=== PATIENT | female | born 1935 | race Asian ===

== ENCOUNTER 2016-11-08 06:09 | Day surgery (SDC) | payer MEDICARE, OTHER ==
[2016-11-08] MEDS ORDERED: PHENYLEPHRINE 2.5% OPHTH 2 ML DROPS ONE (06:29)
[2016-11-08] MEDS ORDERED: PROPARACAINE 0.5% OPHTH DROPS 15 ML OPTH ONE ×2 (06:40→07:47)
[2016-11-08] MEDS ORDERED: PHENYLEPHRINE 2.5% OPHTH 2 ML DROPS OPTH ONE (06:40)
[2016-11-08] MEDS ORDERED: CYCLOPENTOLATE 1% OPHTH DROPS 2 ML OPTH ONE (06:40)
[2016-11-08] MEDS ORDERED: KETOROLAC 0.45% OPHTH DROPS OPTH ONE (06:40)
[2016-11-08] MEDS ORDERED: LACTATED RINGERS 500 ML IV ONE ×2 (07:00→08:00)
[2016-11-08] MEDS ORDERED: LIDOCAINE-MPF 2% 5 ML VIAL IM ONE (07:40)
[2016-11-08] MEDS ORDERED: MIDAZOLAM 2 MG/2 ML VIAL IVP ONE (07:40)
[2016-11-08] MEDS ORDERED: PROPOFOL 200 MG/20 ML VIAL IVP ONE (07:40)
[2016-11-08] MEDS ORDERED: EPINEPHrine 1 MG/ML AMP IVP ONE (07:46)
[2016-11-08] MEDS ORDERED: BRIMONIDINE 0.2% OPHTH DROPS 5 ML OPTH ONE (07:46)
[2016-11-08] MEDS ORDERED: CHONDR SULF/HYALURONATE SYRINGE IO ONE (07:47)
[2016-11-08] MEDS ORDERED: BSS/LIDOCAINE/EPINEPHRINE 1 ML SYRINGE IO ONE ×2 (07:47)
[2016-11-08] MEDS ORDERED: TIMOLOL 0.5% OPHTH DROPS OPTH ONE (07:47)
[2016-11-08] MEDS ORDERED: TRIAMCIN/MOXIFLOX/VANCO 1 ML VIAL IO ONE (07:48)
== END 2016-11-08 06:10 | disposition home or self-care (01) ==
PROC: 08RK3JZ Replacement of Left Lens with Synthetic Substitute, Percutaneous Approach (ICD-10-PCS; principal; 2016-11-08 07:30)
DX: H25.812 Combined forms of age-related cataract, left eye (principal); I10 Essential (primary) hypertension; K21.9 Gastro-esophageal reflux disease without esophagitis; E78.5 Hyperlipidemia, unspecified; Z91.89 Other specified personal risk factors, not elsewhere classified
CPT/HCPCS: 66984; A9270; J7120; V2632

== ENCOUNTER 2017-01-09 07:39 | Outpatient (CLI) | payer MEDICARE, OTHER | END 2017-01-09 07:40 | disposition home or self-care (01) | DX: I10 Essential (primary) hypertension (principal); E78.5 Hyperlipidemia, unspecified ==

== ENCOUNTER 2017-01-31 08:54 | Day surgery (SDC) | payer MEDICARE, OTHER ==
[~2017-01-31 08:54] MED LIST: PHENYLEPHRINE 2.5% OPHTH 2 ML DROPS ONE
[2017-01-31] MEDS ORDERED: CYCLOPENTOLATE 1% OPHTH DROPS 2 ML OPTH ONE (09:26)
[2017-01-31] MEDS ORDERED: PROPARACAINE 0.5% OPHTH DROPS 15 ML OPTH ONE ×2 (09:26→10:04)
[2017-01-31] MEDS ORDERED: KETOROLAC 0.45% OPHTH DROPS OPTH ONE (09:26)
[2017-01-31] MEDS ORDERED: PHENYLEPHRINE 2.5% OPHTH 2 ML DROPS OPTH ONE (09:26)
[2017-01-31] MEDS ORDERED: LACTATED RINGERS 500 ML IV ONE (09:33)
[2017-01-31] MEDS ORDERED: PROPOFOL 200 MG/20 ML VIAL IVP ONE (10:00)
[2017-01-31] MEDS ORDERED: MIDAZOLAM 2 MG/2 ML VIAL IVP ONE (10:00)
[2017-01-31] MEDS ORDERED: LIDOCAINE-MPF 2% 5 ML VIAL IM ONE (10:00)
[2017-01-31] MEDS ORDERED: CHONDR SULF/HYALURONATE SYRINGE IO ONE (10:03)
[2017-01-31] MEDS ORDERED: BRIMONIDINE 0.2% OPHTH DROPS 5 ML OPTH ONE (10:03)
[2017-01-31] MEDS ORDERED: EPINEPHrine 1 MG/ML AMP IVP ONE (10:03)
[2017-01-31] MEDS ORDERED: TIMOLOL 0.5% OPHTH DROPS OPTH ONE (10:04)
[2017-01-31] MEDS ORDERED: TRIAMCIN/MOXIFLOX/VANCO 1 ML VIAL IO ONE ×2 (10:04)
[2017-01-31] MEDS ORDERED: BSS/LIDOCAINE/EPINEPHRINE 1 ML SYRINGE IO ONE ×2 (10:04)
== END 2017-01-31 08:55 | disposition home or self-care (01) ==
PROC: 08RJ3JZ Replacement of Right Lens with Synthetic Substitute, Percutaneous Approach (ICD-10-PCS; principal; 2017-01-31 10:00)
DX: H25.811 Combined forms of age-related cataract, right eye (principal); I10 Essential (primary) hypertension; E78.5 Hyperlipidemia, unspecified; Z79.82 Long term (current) use of aspirin; H40.9 Unspecified glaucoma
CPT/HCPCS: 66984; A9270; V2632

== ENCOUNTER 2017-09-09 08:00 | Outpatient (CLI) | payer MEDICARE, OTHER ==
[2017-09-09 12:35] LABS: CALCIUM 9.5 mg/dL (8.5-10.3); CREATININE 1.2 mg/dL (0.4-1.0); POTASSIUM 4.4 mmol/L (3.5-5.0)
== END 2017-09-09 08:01 | disposition home or self-care (01) ==
LOC: LAB.WCP 08:00
PROVIDERS: ATTEND Family Medicine
DX: I10 Essential (primary) hypertension (principal)
CPT/HCPCS: 36415; 80048

== ENCOUNTER 2017-10-30 08:00 | Outpatient (CLI) | payer MEDICARE, OTHER ==
[2017-10-30 13:31] LABS: CALCIUM 8.9 mg/dL (8.5-10.3)
== END 2017-10-30 08:01 | disposition home or self-care (01) ==
LOC: LAB.WCP 08:00
PROVIDERS: ATTEND Family Medicine
DX: R94.4 Abnormal results of kidney function studies (principal)
CPT/HCPCS: 36415; 80048

== ENCOUNTER 2018-06-17 08:00 | Outpatient (CLI) | payer MEDICARE, OTHER ==
[2018-06-17 13:42] LABS: ALBUMIN 3.9 g/dL (3.2-5.5); ALBUMIN/GLOBULIN RATIO 1.5 (1.0-2.2); ALKALINE PHOSPHATASE 37 IU/L (42-121); ALT ALANINE AMINOTRANSFERASE 14 IU/L (10-60); AST ASPARTATE AMINOTRANSFERASE 25 IU/L (10-42); BUN - BLOOD UREA NITROGEN 21 mg/dL (6-20); CALCIUM 9.5 mg/dL (8.5-10.3); CARBON DIOXIDE - CO2 29 mmol/L (21-32); CHLORIDE 105 mmol/L (101-111); CHOL/HDL RATIO 2.8 (<4.4); CHOLESTEROL 122 mg/dL; GFR - MDRD 53 (>89); GLUCOSE 91 mg/dL (70-100); HDL CHOLESTEROL 44 mg/dL; LDL CHOLESTEROL,CALCULATED 59 mg/dL; LDL/HDL RATIO 1.3 (<4.4); SODIUM 141 mmol/L (135-145); TOTAL PROTEIN 6.5 g/dL (6.7-8.2); VLDL CHOLESTEROL 19 mg/dL
[2018-06-17 13:46] LABS: THYROID STIMULATING HORMONE 1.31 uIU/mL (0.34-5.60)
[2018-06-17 13:55] LABS: BASOPHILS % (AUTO) 0.6 %; EOSINOPHILS # (AUTO) 0.1 10^3/uL (0.0-0.7); EOSINOPHILS % (AUTO) 1.3 %; LYMPHOCYTES % (AUTO) 28.3 %; MEAN CORPUSCULAR HEMOGLOBIN 32.6 pg (27.0-31.0); MEAN CORPUSCULAR HGB CONC 34.2 g/dL (32.0-36.0); MEAN CORPUSCULAR VOLUME 95.1 fL (81.0-99.0); MEAN PLATELET VOLUME 11.8 fL (7.9-10.8); MONOCYTES # (AUTO) 0.5 10^3/uL (0.0-1.0); MONOCYTES % (AUTO) 7.6 %; NEUTROPHILS # (AUTO) 4.5 10^3/uL (1.5-6.6); NEUTROPHILS % (AUTO) 62.2 %; PLT - PLATELET COUNT 193 10^3/uL (130-450); RED BLOOD COUNT 3.98 10^6/uL (4.20-5.40); RED CELL DISTRIBUTION WIDTH 13.8 % (12.0-15.0); WHITE BLOOD COUNT 7.2 x10^3/uL (4.8-10.8)
[2018-06-17 13:57] LABS: FOLATE 18.95 ng/mL (5.90 - >24.8)
[2018-06-17 14:31] LABS: RBC MORPHOLOGY (MULTIPLE) 1+ ANISOCYTOSIS (NORMAL)
== END 2018-06-17 08:01 | disposition home or self-care (01) ==
LOC: LAB.WCP 08:00
PROVIDERS: ATTEND Family Medicine
DX: I10 Essential (primary) hypertension (principal); R41.3 Other amnesia
CPT/HCPCS: 36415; 80053; 80061; 82607; 82746; 83721; 84443; 85025

== ENCOUNTER 2018-08-13 11:05 | Emergency (ER) | payer MEDICARE, OTHER ==
[2018-08-13 11:20] VITALS: BP 131/79
--- NOTE | 2018-08-13 12:38 | ED Physician Documentation ---
History of Present Illness - Stated complaint Stated Complaint: L SIDE PX - Chief complaint Chief Complaint: General - History obtained from History obtained from: Patient, Family (daughter) - History of Present Illness Timing: Other (About 3-4 days L rib pain without injury that is recollected. Aching in quality. She is demented, so hx from daughter.) Review of Systems Unable to obtain: Dementia PD PAST MEDICAL HISTORY - Past Medical History Cardiovascular: Hypertension, High cholesterol Respiratory: None Endocrine/Autoimmune: None GI: None : None HEENT: Glaucoma Musculoskeletal: Osteoarthritis Derm: None - Past Surgical History HEENT: Cataracts - Present Medications Home Medications: Ambulatory Orders Medication Instructions Recorded Confirmed Aspirin [Yelena Chewable Aspirin] 81 mg PO DAILY 11/08/16 01/31/17 RX: Fenofibrate 160 mg PO DAILY 11/08/16 01/31/17 RX: HYDROcod/ACETAM 5/325 [[place] 5 mg PO PRN PRN 11/08/16 01/31/17 5/325] RX: Latanoprost 1 drops EACHEYE DAILY 11/08/16 01/31/17 RX: Lisinopril 5 mg PO DAILY 11/08/16 01/31/17 RX: Simvastatin 20 mg PO DAILY 11/08/16 01/31/17 RX: Timolol [Betimol] 1 drops EACHEYE DAILY 11/08/16 01/31/17 Hydrocodone/Acetaminophen 1 - 2 each PO Q6H PRN #14 tablet 08/13/18 [Hydrocodon-Acetaminophen 5-325] RX: Amlodipine Besylate 10 mg 08/13/18 RX: Pantoprazole [Protonix] 40 mg 08/13/18 - Allergies Allergies/Adverse Reactions: Allergies Allergy/AdvReac Type Severity Reaction Status Date / Time No Known Drug Allergies Allergy Verified 08/13/18 11:20 PD ED PE NORMAL - Vitals Vital signs reviewed: Yes - General General: No acute distress, Well developed/nourished - Neck Neck: Supple, no meningeal sign, No bony TTP - Cardiac Cardiac: RRR, No murmur - Respiratory Respiratory: No respiratory distress, Clear bilaterally, Other (Tender focally over about rib 6 or so mid axillary line on the left. No overlying skin changes, ecchymosis, or shingles.) - Abdomen Abdomen: Soft, Non tender - Extremities Extremities: No calf tenderness / cord Results - Vitals Vitals: Vital Signs - 24 hr 08/13/18 11:16 Temperature 36.6 C Heart Rate 60 Respiratory 16 Rate Blood Pressure 131/79 H O2 Saturation 100 Oxygen O2 Source Room air - EKG (time done) 1254 Rate: Rate (enter#) Rhythm: NSR [place]: Normal Intervals: Normal AR QRS: Normal Ischemia: Normal ST segments Computer interpretation: Agree with computer - Rads (name of study) L ribs and chest Radiology: EMP read contemporaneously (suspect acute/subacute L rib frx) Departure - Departure Disposition: Home, Self Care Clinical Impression: Rib fracture Condition: Good Record reviewed to determine appropriate education?: Yes Instructions: ED Fx Rib Prescriptions: Hydrocodone/Acetaminophen [Hydrocodon-Acetaminophen 5-325] 1 - 2 each PO Q6H PRN #14 tablet PRN Reason: pain Comments: Follow-up with your doctor in a week. Do not drink or drive while taking narcotic pain medication. Note that many narcotic pain relievers also contain Tylenol/acetaminophen. Please ensure that your total dose of acetaminophen from all sources does not exceed 3 g (3000 mg) per day. You may get constipated while on this medication. Take a stool softener such as Colace twice a day while you are on it. Also add an zgso-moy-vspndzi laxative such as senna or MiraLAX on any day that you do not have a bowel movement. If you received a narcotic pain medication or sedative while in the emergency department, do not drive for the next 24 hours. Discharge Date/Time: 08/13/18 14:23
[2018-08-13] MEDS ORDERED: HYDROcod/ACETAM 5/325 MG TABLET PO STA (12:44)
--- NOTE | 2018-08-13 14:08 | XRAY Report ---
Reason: rib pain L side Procedure Date: 08/13/2018 Accession Number: [id number] / [id number] Procedure: XR - Ribs w/PA Chest LT CPT Code: FULL RESULT: EXAM: LEFT RIB RADIOGRAPHY EXAM DATE: 08/13/2018 01:39 PM. CLINICAL HISTORY: Rib pain left side. COMPARISON: XR CHEST PA AND LAT 05/14/2007 5:56 AM. TECHNIQUE: 1 view of the chest and 2 views of the ribs. FINDINGS: Bones: In the region identified by a marker is cortical irregularity and thickening which most likely represents a healing subacute fracture. No acute fracture or bone lesion. Lungs: No focal opacities. No pneumothorax. No pleural effusions. Mediastinum: The heart is normal for size. The aortic arch is again calcified. The cardiomediastinal silhouette is overall stable. Other: None. IMPRESSION: Suspect subacute/healing left rib fracture at the site marked as tender. RADIA
== END 2018-08-13 14:23 | disposition home or self-care (01) ==
LOC: ED 11:05
DX: S22.32XA Fracture of one rib, left side, initial encounter for closed fracture (principal); X58.XXXA Exposure to other specified factors, initial encounter; F03.90 Unspecified dementia, unspecified severity, without behavioral disturbance, psychotic disturbance, mood disturbance, and anxiety; I10 Essential (primary) hypertension; E78.00 Pure hypercholesterolemia, unspecified
CPT/HCPCS: 71101; 93005; 99283; A9270

== ENCOUNTER 2018-09-19 08:24 | Outpatient (CLI) | payer MEDICARE, OTHER ==
--- NOTE | 2018-09-22 18:58 | DEXA Report ---
Reason: OSTEOPOROSIS NOS Procedure Date: 09/19/2018 Accession Number: [id number] / [id number] Procedure: DEX - Dexa Spine and/or Hip CPT Code: FULL RESULT: EXAM: Dexa Spine and/or Hip DATE: 09/19/2018 9:45 AM CLINICAL HISTORY: OSTEOPOROSIS NOS TECHNIQUE: Dual energy x-ray absorptiometry (DXA) was performed on a [employer] System. Regions measured are the AP Spine, femoral neck, and if needed forearm. COMPARISON: None. In accordance with the International Society for Clinical Densitometry (ISCD) guidelines, data from previous exams may be reanalyzed using current recommendations and techniques. This is done to allow a more accurate basis for comparison with the current study. FINDINGS: The data for the lumbar spine is as follows: BMD (g/cm/cm) T-SCORE Z-SCORE REGION L1 0.728 -3.4 -0.5 L2 0.851 -2.9 -0.1 L3 0.989 -1.8 1.1 L4 1.214 0.1 2.9 TOTAL 0.962 -1.8 1.0 NOTE: All evaluable vertebrae are used for classification The data for the hip is as follows: BMD (g/cm/cm) T-SCORE Z-SCORE REGION Neck 0.725 -2.3 0.7 TOTAL 0.693 -2.5 0.4 NOTE: The femoral neck or total proximal femur, whichever is lowest, is used for classification. IMPRESSION: THE WHO CLASSIFICATION BASED ON THE INTERNATIONAL REFERENCE STANDARD IS OSTEOPOROSIS. THE FRACTURE RISK IS HIGH. RECOMMENDATION: Patients with diagnosis of osteoporosis or osteopenia should have regular bone mineral density assessment. For those eligible for Medicare, routine testing is allowed once every 2 years. Testing frequency can be increased for patients who have rapidly progressing disease or for those who are receiving medical therapy to restore bone mass. COMMENT: World Health Organization (WHO) definitions for osteoporosis and osteopenia: NORMAL BMD: T-score at -1.0 or higher, fracture risk is low OSTEOPENIA BMD: T-score between -1.0 and -2.5, fracture risk is increased. OSTEOPOROSIS BMD: T-score at -2.5 or lower, fracture risk is high. National Osteoporosis Foundation recommends: 1. Obtain adequate dietary calcium (at least 1200 mg per day) and vitamin D (400-800 international units per day). 2. Participate, as appropriate, in regular weightbearing and muscle-strengthening exercise. 3. Avoid tobacco use and reduce alcohol and caffeine intake. 4. For more detailed information see the website at www.NOF.org.
== END 2018-09-19 08:25 | disposition home or self-care (01) ==
LOC: DI 08:24
PROVIDERS: ATTEND Family Medicine
DX: M81.0 Age-related osteoporosis without current pathological fracture (principal)
CPT/HCPCS: 77080

== ENCOUNTER 2018-12-03 14:30 | Outpatient (CLI) | payer MEDICARE, OTHER ==
[2018-12-03 19:08] LABS: BASOPHILS % (AUTO) 0.5 %; EOSINOPHILS # (AUTO) 0.1 10^3/uL (0.0-0.7); HGB - HEMOGLOBIN 12.7 g/dL (12.0-16.0); LYMPHOCYTES % (AUTO) 31.5 %; MEAN CORPUSCULAR HEMOGLOBIN 32.1 pg (27.0-31.0); MEAN CORPUSCULAR HGB CONC 32.9 g/dL (32.0-36.0); MEAN CORPUSCULAR VOLUME 97.6 fL (81.0-99.0); MONOCYTES # (AUTO) 0.5 10^3/uL (0.0-1.0); MONOCYTES % (AUTO) 8.1 %; NEUTROPHILS # (AUTO) 3.8 10^3/uL (1.5-6.6); NEUTROPHILS % (AUTO) 58.9 %; PLT - PLATELET COUNT 205 10^3/uL (130-450); RED BLOOD COUNT 3.97 10^6/uL (4.20-5.40); RED CELL DISTRIBUTION WIDTH 14.1 % (12.0-15.0); WHITE BLOOD COUNT 6.5 x10^3/uL (4.8-10.8)
[2018-12-03 19:26] LABS: PLATELET ESTIMATE, MANUAL NORMAL (130-450,000) (NORMAL); PLATELET MORPHOLOGY RARE GIANT PLATELETS (NORMAL); RBC MORPHOLOGY (MULTIPLE) NORMAL APPEARANCE (NORMAL)
[2018-12-03 19:34] LABS: ALBUMIN 3.7 g/dL (3.2-5.5); ALBUMIN/GLOBULIN RATIO 1.3 (1.0-2.2); CALCIUM 9.7 mg/dL (8.5-10.3); TOTAL PROTEIN 6.5 g/dL (6.7-8.2)
== END 2018-12-03 14:31 | disposition home or self-care (01) ==
LOC: LAB.WCP 14:30
PROVIDERS: ATTEND Physician Assistant
DX: R53.83 Other fatigue (principal)
CPT/HCPCS: 36415; 80053; 85025

== ENCOUNTER 2018-12-04 08:00 | Outpatient (CLI) | payer MEDICARE, OTHER | END 2018-12-04 23:59 | disposition home or self-care (01) | LOC: LAB.WCP 08:00 | PROVIDERS: ATTEND Physician Assistant | DX: R19.7 Diarrhea, unspecified (principal) | CPT/HCPCS: 81599; 83630; 87045; 87046; 87077; 87329; 87493 ==

== ENCOUNTER 2018-12-25 08:00 | Outpatient (CLI) | payer MEDICARE, OTHER ==
[2018-12-25 14:24] LABS: CHOL/HDL RATIO 2.9 (<4.4); CHOLESTEROL 120 mg/dL; HDL CHOLESTEROL 42 mg/dL; LDL CHOLESTEROL,CALCULATED 59 mg/dL; LDL/HDL RATIO 1.4 (<4.4); VLDL CHOLESTEROL 19 mg/dL
== END 2018-12-25 23:59 | disposition home or self-care (01) ==
LOC: LAB.WCP 08:00
PROVIDERS: ATTEND Family Medicine
DX: E78.5 Hyperlipidemia, unspecified (principal); F32.9 Major depressive disorder, single episode, unspecified
CPT/HCPCS: 36415; 80061; 83721; 84443

== ENCOUNTER 2018-12-30 09:57 | Outpatient (CLI) | payer MEDICARE, OTHER | END 2018-12-30 09:58 | disposition home or self-care (01) | LOC: RT 09:57 | PROVIDERS: ATTEND Internal Medicine Gastroenterology | DX: I10 Essential (primary) hypertension (principal) | CPT/HCPCS: 93005 ==

== ENCOUNTER 2019-01-01 11:39 | Day surgery (SDC) | payer MEDICARE, OTHER ==
[2019-01-01] MEDS ORDERED: LACTATED RINGERS 1,000 ML IV ONE (12:08)
[2019-01-01] MEDS ORDERED: fentaNYL 100 MCG/2 ML VIAL IVP ONE (12:35)
[2019-01-01] MEDS ORDERED: MIDAZOLAM 2 MG/2 ML VIAL IVP ONE (12:35)
[2019-01-01 13:43] VITALS: BP 127/72
== END 2019-01-01 11:40 | disposition home or self-care (01) ==
LOC: SDS 11:39
PROVIDERS: ATTEND Internal Medicine Gastroenterology
PROC: 0DBK8ZZ Excision of Ascending Colon, Via Natural or Artificial Opening Endoscopic (ICD-10-PCS; 2019-01-01)
PROC: 0DBK8ZZ Excision of Ascending Colon, Via Natural or Artificial Opening Endoscopic (ICD-10-PCS; principal; 2019-01-01 12:45)
DX: K62.5 Hemorrhage of anus and rectum (principal); D12.2 Benign neoplasm of ascending colon; K57.30 Diverticulosis of large intestine without perforation or abscess without bleeding; K21.9 Gastro-esophageal reflux disease without esophagitis; Z87.891 Personal history of nicotine dependence; Z79.891 Long term (current) use of opiate analgesic; E78.5 Hyperlipidemia, unspecified; I12.9 Hypertensive chronic kidney disease with stage 1 through stage 4 chronic kidney disease, or unspecified chronic kidney disease; N18.3 Chronic kidney disease, stage 3 (moderate); M16.0 Bilateral primary osteoarthritis of hip
CPT/HCPCS: 45380; 45385; J7120

== ENCOUNTER 2019-06-17 08:00 | Outpatient (CLI) | payer MEDICARE, OTHER ==
[2019-06-17 12:25] LABS: BASOPHILS # (AUTO) 0.1 10^3/uL (0.0-0.1); EOSINOPHILS # (AUTO) 0.1 10^3/uL (0.0-0.7); EOSINOPHILS % (AUTO) 1.2 %; HGB - HEMOGLOBIN 13.2 g/dL (12.0-16.0); LYMPHOCYTES # (AUTO) 1.7 10^3/uL (1.5-3.5); LYMPHOCYTES % (AUTO) 30.1 %; MEAN CORPUSCULAR HEMOGLOBIN 33.4 pg (27.0-31.0); MEAN CORPUSCULAR HGB CONC 34.6 g/dL (32.0-36.0); MEAN CORPUSCULAR VOLUME 96.7 fL (81.0-99.0); MONOCYTES # (AUTO) 0.6 10^3/uL (0.0-1.0); MONOCYTES % (AUTO) 9.9 %; NEUTROPHILS # (AUTO) 3.3 10^3/uL (1.5-6.6); NEUTROPHILS % (AUTO) 57.5 %; PLT - PLATELET COUNT 270 10^3/uL (130-450); RED BLOOD COUNT 3.95 10^6/uL (4.20-5.40); RED CELL DISTRIBUTION WIDTH 14.2 % (12.0-15.0); WHITE BLOOD COUNT 5.8 x10^3/uL (4.8-10.8)
[2019-06-17 12:41] LABS: ALBUMIN 3.7 g/dL (3.2-5.5); ALBUMIN/GLOBULIN RATIO 1.3 (1.0-2.2); ALKALINE PHOSPHATASE 34 IU/L (42-121); ALT ALANINE AMINOTRANSFERASE 12 IU/L (10-60); AST ASPARTATE AMINOTRANSFERASE 23 IU/L (10-42); BILIRUBIN,TOTAL 0.9 mg/dL (0.2-1.0); BUN - BLOOD UREA NITROGEN 22 mg/dL (6-20); CALCIUM 9.7 mg/dL (8.5-10.3); CARBON DIOXIDE - CO2 30 mmol/L (21-32); CHLORIDE 105 mmol/L (101-111); CHOL/HDL RATIO 3.1 (<4.4); CHOLESTEROL 118 mg/dL; GFR - MDRD 53 (>89); GLUCOSE 90 mg/dL (70-100); HDL CHOLESTEROL 38 mg/dL; LDL CHOLESTEROL,CALCULATED 59 mg/dL; LDL/HDL RATIO 1.6 (<4.4); SODIUM 142 mmol/L (135-145); TOTAL PROTEIN 6.5 g/dL (6.7-8.2); VLDL CHOLESTEROL 21 mg/dL
== END 2019-06-17 23:59 | disposition home or self-care (01) ==
LOC: LAB.WCP 08:00
PROVIDERS: ATTEND Physician Assistant
DX: E78.5 Hyperlipidemia, unspecified (principal); N18.3 Chronic kidney disease, stage 3 (moderate); M48.061 Spinal stenosis, lumbar region without neurogenic claudication; M81.0 Age-related osteoporosis without current pathological fracture; E55.9 Vitamin D deficiency, unspecified; M16.0 Bilateral primary osteoarthritis of hip; K21.9 Gastro-esophageal reflux disease without esophagitis; I12.9 Hypertensive chronic kidney disease with stage 1 through stage 4 chronic kidney disease, or unspecified chronic kidney disease
CPT/HCPCS: 36415; 80053; 80061; 83721; 84443; 85025

== ENCOUNTER 2019-07-29 12:11 | Emergency (ER) | payer MEDICARE, OTHER ==
[2019-07-29 12:48] VITALS: BP 150/60
--- NOTE | 2019-07-29 13:02 | ED Physician Documentation ---
PD HPI FOCAL NEURO - Stated complaint Stated Complaint: HEAD PX - Chief complaint Chief Complaint: Neuro - History obtained from History obtained from: Patient, Family - History of Present Illness Timing - onset: Other (For the last 2 to 3 days she has had several hours of of right parietal and occipital headaches in the morning. She is not a headachy person. She has no headache now. She does not notice any weakness, numbness, tingling. No fevers. No visual deficit.) Review of Systems Constitutional: denies: Fever, Chills Eyes: denies: Loss of vision, Decreased vision, Photophobia Nose: denies: Rhinorrhea / runny nose Throat: denies: Sore throat GI: denies: Nausea, Vomiting, Diarrhea PD PAST MEDICAL HISTORY - Past Medical History Cardiovascular: Hypertension, High cholesterol Respiratory: None Endocrine/Autoimmune: None GI: None : None HEENT: Glaucoma Musculoskeletal: Osteoarthritis Derm: None - Past Surgical History HEENT: Cataracts - Present Medications Home Medications: Ambulatory Orders Medication Instructions Recorded Confirmed Aspirin [Yelena Chewable Aspirin] 81 mg PO DAILY 11/08/16 01/01/19 Fenofibrate 160 mg PO DAILY 11/08/16 01/01/19 HYDROcod/ACETAM 5/325 [[place] 5/325] 5 mg PO PRN PRN 11/08/16 01/01/19 Latanoprost 1 drops EACHEYE DAILY 11/08/16 01/01/19 Lisinopril 10 mg PO DAILY 11/08/16 01/01/19 Simvastatin 20 mg PO DAILY 11/08/16 01/01/19 Timolol [Betimol] 1 drops EACHEYE DAILY 11/08/16 01/01/19 Amlodipine Besylate 10 mg PO DAILY 08/13/18 01/01/19 Pantoprazole [Protonix] 40 mg PO DAILY 08/13/18 01/01/19 - Allergies Allergies/Adverse Reactions: Allergies Allergy/AdvReac Type Severity Reaction Status Date / Time No Known Drug Allergies Allergy Verified 07/29/19 12:27 PD ED PE NORMAL - Vitals Vital signs reviewed: Yes - General General: Alert and oriented X 3, No acute distress - HEENT HEENT: PERRL, EOMI - Neck Neck: Supple, no meningeal sign, No bony TTP - Cardiac Cardiac: RRR, No murmur - Respiratory Respiratory: No respiratory distress, Clear bilaterally - Abdomen Abdomen: Non tender - Neuro Neuro: Alert and oriented X 3, resident care assistant 2-12 intact, No motor deficit, No sensory def icit, Normal speech Eye Opening: Spontaneous Motor: Obeys Commands Verbal: Oriented GCS Score: 15 Results - Vitals Vitals: Vital Signs - 24 hr 07/29/19 07/29/19 12:24 12:27 Temperature 37.1 C Heart Rate 62 60 Respiratory 16 14 Rate Blood Pressure 122/46 L 150/60 H O2 Saturation 98 99 Oxygen O2 Source Room air - Labs Labs: Laboratory Tests 07/29/19 07/29/19 07/29/19 13:07 13:07 13:07 WBC 6.3 RBC 3.79 L Hgb 12.0 Hct 36.8 L MCV 97.1 MCH 31.7 H MCHC 32.6 RDW 14.3 Plt Count 225 MPV 12.1 H Neut # (Auto) 3.7 Lymph # (Auto) 1.8 [place] # (Auto) 0.6 Eos # (Auto) 0.1 Baso # (Auto) 0.1 Absolute Nucleated RBC 0.00 Nucleated RBC % 0.0 ESR 2 Sodium 138 Potassium 4.1 Chloride 104 Carbon Dioxide 28 Anion Gap 6.0 BUN 29 H Creatinine 1.1 H Estimated GFR (MDRD) 47 L Glucose 120 H Calcium 9.3 Total Bilirubin 0.5 AST 21 ALT 12 Alkaline Phosphatase 28 L C-Reactive Protein < 1.0 Total Protein 6.2 L Albumin 3.6 Globulin 2.6 Albumin/Globulin Ratio 1.4 Lipase 33 - Rads (name of study) CT Head Radiology: EMP read contemporaneously (atrophy, NAD) PD MEDICAL DECISION MAKING - ED course ED course: 83-year-old woman with new morning headaches. Her examination is normal. CT imaging and inflammatory markers were done given advanced age and is negative. Departure - Departure Disposition: 01 Home, Self Care Clinical Impression: Headache Qualifiers: Headache type: unspecified Headache chronicity pattern: acute headache Intractability: not intractable Qualified Code(s): R51 - Headache Condition: Good Record reviewed to determine appropriate education?: Yes Instructions: ED Cephalgia Unspecified Comments: Tylenol as needed for pain. Return if worse. Followup with your physician. Labs and CT are normal Discharge Date/Time: 07/29/19 14:17
[2019-07-29 13:18] LABS: BASOPHILS # (AUTO) 0.1 10^3/uL (0.0-0.1); BASOPHILS % (AUTO) 0.8 %; EOSINOPHILS # (AUTO) 0.1 10^3/uL (0.0-0.7); EOSINOPHILS % (AUTO) 0.8 %; LYMPHOCYTES # (AUTO) 1.8 10^3/uL (1.5-3.5); LYMPHOCYTES % (AUTO) 27.9 %; MEAN CORPUSCULAR HEMOGLOBIN 31.7 pg (27.0-31.0); MEAN CORPUSCULAR HGB CONC 32.6 g/dL (32.0-36.0); MEAN CORPUSCULAR VOLUME 97.1 fL (81.0-99.0); MEAN PLATELET VOLUME 12.1 fL (7.9-10.8); MONOCYTES # (AUTO) 0.6 10^3/uL (0.0-1.0); MONOCYTES % (AUTO) 10.2 %; NEUTROPHILS # (AUTO) 3.7 10^3/uL (1.5-6.6); NEUTROPHILS % (AUTO) 59.7 %; PLT - PLATELET COUNT 225 10^3/uL (130-450); RED BLOOD COUNT 3.79 10^6/uL (4.20-5.40); RED CELL DISTRIBUTION WIDTH 14.3 % (12.0-15.0); WHITE BLOOD COUNT 6.3 x10^3/uL (4.8-10.8)
[2019-07-29 13:32] LABS: ALBUMIN 3.6 g/dL (3.2-5.5); ALBUMIN/GLOBULIN RATIO 1.4 (1.0-2.2); ALKALINE PHOSPHATASE 28 IU/L (42-121); ALT ALANINE AMINOTRANSFERASE 12 IU/L (10-60); AST ASPARTATE AMINOTRANSFERASE 21 IU/L (10-42); BILIRUBIN,TOTAL 0.5 mg/dL (0.2-1.0); BUN - BLOOD UREA NITROGEN 29 mg/dL (6-20); CALCIUM 9.3 mg/dL (8.5-10.3); CARBON DIOXIDE - CO2 28 mmol/L (21-32); CHLORIDE 104 mmol/L (101-111); CREATININE 1.1 mg/dL (0.4-1.0); GFR - MDRD 47 (>89); GLUCOSE 120 mg/dL (70-100); LIPASE 33 U/L (22-51); SODIUM 138 mmol/L (135-145); TOTAL PROTEIN 6.2 g/dL (6.7-8.2)
[2019-07-29 13:35] LABS: CRP - C-REACTIVE PROTEIN < 1.0 mg/dL (0-1.0)
--- NOTE | 2019-07-29 13:51 | CT Report ---
Reason: new headache Procedure Date: 07/29/2019 Accession Number: [id number] / [id number] Procedure: CT - HEAD WO CPT Code: FULL RESULT: EXAM: CT HEAD EXAM DATE: 07/29/2019 01:16 PM. CLINICAL HISTORY: New headache. COMPARISON: None. TECHNIQUE: Multiaxial CT images were obtained from the foramen magnum to the vertex. Reformats: Sagittal and coronal. IV contrast: None. In accordance with CT protocol optimization, one or more of the following dose reduction techniques were utilized for this exam: automated exposure control, adjustment of mA and/or KV based on patient size, or use of iterative reconstructive technique. FINDINGS: Parenchyma: There is bilateral frontal lobe parenchymal volume loss. Negative for acute hemorrhage. There is no midline shift or mass-effect. Extraaxial Spaces: No subdural or epidural hematoma. There is prominent CSF space in the anterior cranial fossa. Ventricles: Normal in size and position. Sinuses and Orbits: Imaged paranasal sinuses, orbits, and mastoids show no significant abnormality. Bones: No evidence of fracture or calvarial defect. Other: None. IMPRESSION: 1. Negative for an acute or focal intracranial abnormality. 2. Generalized cerebral volume loss. RADIA
== END 2019-07-29 14:17 | disposition home or self-care (01) ==
LOC: ED 12:11
DX: R51 Headache (principal); I10 Essential (primary) hypertension; Z79.82 Long term (current) use of aspirin
CPT/HCPCS: 36415; 70450; 80053; 83690; 85025; 85651; 86140; 99284

== ENCOUNTER 2020-07-26 08:18 | Outpatient (CLI) | payer MEDICARE, OTHER ==
[2020-07-26 12:34] LABS: BASOPHILS % (AUTO) 0.8 %; EOSINOPHILS # (AUTO) 0.1 10^3/uL (0.0-0.7); EOSINOPHILS % (AUTO) 1.8 %; HGB - HEMOGLOBIN 11.9 g/dL (12.0-16.0); LYMPHOCYTES # (AUTO) 1.1 10^3/uL (1.5-3.5); LYMPHOCYTES % (AUTO) 21.8 %; MEAN CORPUSCULAR HEMOGLOBIN 32.4 pg (27.0-31.0); MEAN CORPUSCULAR HGB CONC 33.2 g/dL (32.0-36.0); MEAN CORPUSCULAR VOLUME 97.5 fL (81.0-99.0); MEAN PLATELET VOLUME 13.3 fL (7.9-10.8); MONOCYTES # (AUTO) 0.6 10^3/uL (0.0-1.0); MONOCYTES % (AUTO) 12.1 %; NEUTROPHILS # (AUTO) 3.3 10^3/uL (1.5-6.6); NEUTROPHILS % (AUTO) 63.3 %; PLT - PLATELET COUNT 206 10^3/uL (130-450); RED BLOOD COUNT 3.67 10^6/uL (4.20-5.40); RED CELL DISTRIBUTION WIDTH 14.4 % (12.0-15.0); WHITE BLOOD COUNT 5.1 x10^3/uL (4.8-10.8)
[2020-07-26 12:44] LABS: ALBUMIN 3.6 g/dL (3.2-5.5); ALBUMIN/GLOBULIN RATIO 1.4 (1.0-2.2); ALKALINE PHOSPHATASE 48 IU/L (42-121); ALT ALANINE AMINOTRANSFERASE 12 IU/L (10-60); AST ASPARTATE AMINOTRANSFERASE 22 IU/L (10-42); BILIRUBIN,TOTAL 1.1 mg/dL (0.2-1.0); BUN - BLOOD UREA NITROGEN 33 mg/dL (6-20); CALCIUM 9.4 mg/dL (8.5-10.3); CARBON DIOXIDE - CO2 28 mmol/L (21-32); CHLORIDE 106 mmol/L (101-111); CHOL/HDL RATIO 2.9 (<4.4); CHOLESTEROL 109 mg/dL; CREATININE 1.5 mg/dL (0.4-1.0); GLUCOSE 99 mg/dL (70-100); HDL CHOLESTEROL 37 mg/dL; LDL CHOLESTEROL,CALCULATED 54 mg/dL; LDL/HDL RATIO 1.5 (<4.4); SODIUM 141 mmol/L (135-145); TOTAL PROTEIN 6.1 g/dL (6.7-8.2); VLDL CHOLESTEROL 18 mg/dL
== END 2020-07-26 23:59 ==
LOC: LAB.WCP 08:18
PROVIDERS: ATTEND Physician Assistant
DX: I10 Essential (primary) hypertension (principal); E78.5 Hyperlipidemia, unspecified
CPT/HCPCS: 36415; 80053; 80061; 83721; 85025

== ENCOUNTER 2020-12-02 08:00 | Outpatient (CLI) | payer MEDICARE, OTHER ==
[2020-12-02 18:15] LABS: BASOPHILS # (AUTO) 0.1 10^3/uL (0.0-0.1); EOSINOPHILS # (AUTO) 0.1 10^3/uL (0.0-0.7); EOSINOPHILS % (AUTO) 1.5 %; HCT - HEMATOCRIT 35.1 % (37.0-47.0); HGB - HEMOGLOBIN 10.9 g/dL (12.0-16.0); LYMPHOCYTES # (AUTO) 1.8 10^3/uL (1.5-3.5); LYMPHOCYTES % (AUTO) 33.8 %; MEAN CORPUSCULAR HEMOGLOBIN 32.2 pg (27.0-31.0); MEAN CORPUSCULAR HGB CONC 31.1 g/dL (32.0-36.0); MEAN CORPUSCULAR VOLUME 103.8 fL (81.0-99.0); MONOCYTES # (AUTO) 0.4 10^3/uL (0.0-1.0); MONOCYTES % (AUTO) 7.7 %; NEUTROPHILS # (AUTO) 2.9 10^3/uL (1.5-6.6); NEUTROPHILS % (AUTO) 55.8 %; PLT - PLATELET COUNT 205 10^3/uL (130-450); RED BLOOD COUNT 3.38 10^6/uL (4.20-5.40); RED CELL DISTRIBUTION WIDTH 13.8 % (12.0-15.0); WHITE BLOOD COUNT 5.2 x10^3/uL (4.8-10.8)
[2020-12-02 18:32] LABS: ALBUMIN 3.6 g/dL (3.2-5.5); ALBUMIN/GLOBULIN RATIO 1.6 (1.0-2.2); BILIRUBIN,TOTAL 0.8 mg/dL (0.2-1.0); CALCIUM 9.5 mg/dL (8.5-10.3); TOTAL PROTEIN 5.8 g/dL (6.7-8.2)
== END 2020-12-02 23:59 | disposition home or self-care (01) ==
LOC: LAB.WCP 08:00
PROVIDERS: ATTEND Nurse Practitioner Family
DX: I12.9 Hypertensive chronic kidney disease with stage 1 through stage 4 chronic kidney disease, or unspecified chronic kidney disease (principal); N18.30 Chronic kidney disease, stage 3 unspecified
CPT/HCPCS: 36415; 80053; 85025